=== PATIENT | male | born 1990 | race Caucasian/White ===

== ENCOUNTER 2025-05-25 01:15 | Emergency (ER) | payer OTHER, SELFPAY ==
[2025-05-25 01:15] VITALS: BP 141/96; PULSE 89; RESP 20; TEMP 35.9; O2SAT 98
--- NOTE | 2025-05-25 01:15 | RT.EKG_ITS ---
APPROVED REPORT Exam: Resting ECG Reason for Exam: psych clearance Patient Location: E HR:89 bpm ECG Measurements Heart Rate 89 AXIS OH 160 P 51 QRSd 94 QRS 28 QT 351 T 45 QTc 428 Conclusion Sinus rhythm...normal P axis, V-rate 60- 99 Normal [place]/Intervals No Acute ST changes
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
[2025-05-25 01:49] LABS: Abs Immature Grans 0.03 10^3/uL (0.0-0.06); HCT 42.0 % (40.0-50.0); HGB 14.2 g/dL (13.5-17.5); MCH 28.9 pg (27.0-33.0); MCHC 33.8 % (32.0-36.0); MCV 86 fL (80-95); MPV 11.3 fL (8.0-11.0); Platelet Count 239 10^3/uL (130-400); RBC 4.91 10^6/uL (4.36-5.78); RDW 12.6 % (11.8-14.1); RDW-SD 38.8 fL; WBC 13.85 10^3/uL (4.4-10.8)
[2025-05-25] MEDS: LORazepam 1 MG TAB 2 MG PO (01:49)
[2025-05-25 02:06] LABS: ALT 28 U/L (16-63); AST 20 U/L (15-37); Albumin 4.1 g/dL (3.4-5.0); Alkaline Phosphatase 70 U/L (46-116); Anion Gap 12.5 mmol/L (3-11); BUN 11 mg/dL (7-18); Bilirubin, Total 0.6 mg/dL (0.2-1.0); CO2 23.5 mmol/L (21.0-32.0); Calcium 9.3 mg/dL (8.5-10.1); Chloride 102 mmol/L (98-107); Estimated GFR 81.38 (mL/min/1.73m2); Glucose 125 mg/dL (74-106); Potassium 3.4 mmol/L (3.5-5.1); Sodium 138 mmol/L (136-145); Total Protein 8.2 g/dL (6.4-8.2)
[2025-05-25] MEDS: Haloperidol 5 MG TAB 10 MG PO (02:11)
[2025-05-25 02:14] LABS: Immature Grans % 0.0 %; RBC Morphology Normal
[2025-05-25 02:17] LABS: Salicylate 4.7 mg/dL (<2.8)
[2025-05-25 02:17] LABS: Cannabinoids THC Positive (Negative); METHADONE URINE SCREEN Negative (Negative)
[2025-05-25 02:18] LABS: Acetaminophen < 2 ug/mL (10-30)
--- NOTE | 2025-05-25 02:30 | NUR.NOTE ---
Pt is restless but cooperative, he allowed blood draw ekg and uds, he is loud and singing non stop, stated he is hearing voices, FPJ
--- NOTE | 2025-05-25 03:16 | NUR.NOTE ---
Patient's belongings down in locker 4 in zone b.Nursing Note:
--- NOTE | 2025-05-25 04:03 | PDOC.MHCN ---
Date of service: 05/25/25 Time of Service: 03:00 Suicide Severity Rate CSSRS Have you wished you were or wished you could go to sleep and not wake up?: No Have you actually had any thoughts of killing yourself?: No CSSRS2 Have you been thinking about how you might do this?: No Have you had these thoughts and had some intention of acting on them?: No Have you started to work out or worked out the details of how to kill yourself? Do you intend to carry out this plan?: No CSSRS3 Have you ever done anything, started to do anything or prepared to do anything to end your life?: No CSSRS4 Was this within the past three months?: No Screening Score Total Score: 0 Screening: Negative Mental Health Emergency Note Release [facility] release signed:: Yes Reason for Visit hearing voices In the last 2 weeks has the pt presented for ES prior to today?: Unknown Client Information Client is: New Well Housed: No,status: Homeless Non Suicidal Self Injury Current: No History: No Safety Risk/Harm to Self or Others Current Ideation to Harm Self or Others: No Risk: Does risk to harm exist?: No Risk: N/A Duty to warn indicated: No Asssessment/Mental Status Appearance: Other (Paper clothing) Attitude: Cooperative Behavior: Unremarkable Speech: Normal Affect: Normal Mood: Anxious Thought process: Racing Hallucinations: yes, Auditory Delusions: yes, Persectory/Paranoid Attention: Wandering Perception: Not impaired Orientation: Fully orientated Memory: Intact Insight: Poor Judgement: Poor Neurovegetative Symptoms Sleep: No change Appetitie: No change Interests: No change Energy: No change Libido: Not applicable Substance Use: Do you use nicotine?: Yes Have you used substances in the last 7 days?: No Additional Issues: Assaultive/Threatening Behavior: No Medical Concerns: No Client engaged in active self harm w/weapon: No Threatening to run away: No Child reported abuse/neglect: No Voluntarily presenting for services: Yes Domestic violence is a concern: No Extreme Psychosis or extreme behavior is present: Yes Plan/Disposition Recommended Disposition: Hospitalization facilities contacted. Plan: Referrals were sent out, client will remain at the ED Person reported agreement to plan: Yes Reports/communication Outcome discussed with: ED/Personnel Final Disposition/Discharge Transportation Checklist completed and faxed: No
--- NOTE | 2025-05-25 07:30 | CMPROGNOTE_ITS ---
Date of service: 05/25/25 Time of Service: 10:37 Care Management Progress Note Progress Note Text Progress Note Text: CM huddled with [facility] Per, ED kiln charger, and communicated with mold making supervisor regarding Fam's plan of care. At the time of discussion, Fam remained in his room. Per [facility], Fam currently denies SI/HI; however, he is exhibiting signs of psychosis. [facility] reports that Fam is not based in reality and has made multiple statements, including references to ?Tello trying to kill him? and ?poisoning? him. Fam states he is hearing voices. [facility] indicated that Fam is scheduled to complete an intake appointment with their facility tomorrow to initiate ongoing services. This intake is expected to proceed following this admission. A safety plan is currently in place. [facility]; Patient refused inpatient treatment. Collateral information provided from previous hospital discharges indicates that these behaviors are the patient's baseline. [facility] reevaluated Fam and he will safety plan home. Status Status: Voluntary Reason for Wait: Assessment/Screening Social Determinants of Health Screening Will the Patient Participate in the Screening?: Unable to obtain
--- NOTE | 2025-05-25 07:30 | PDOC.CMPRO ---
Date of service: 05/25/25 Time of Service: 10:37 Care Management Progress Note Progress Note Text Progress Note Text: CM huddled with [facility] Per, ED fire extinguisher charger, and communicated with classified advertising supervisor regarding Fam's plan of care. At the time of discussion, Fam remained in his room. Per [facility], Fam currently denies SI/HI; however, he is exhibiting signs of psychosis. [facility] reports that Fam is not based in reality and has made multiple statements, including references to ?Tello trying to kill him? and ?poisoning? him. Fam states he is hearing voices. [facility] indicated that Fam is scheduled to complete an intake appointment with their facility tomorrow to initiate ongoing services. This intake is expected to proceed following this admission. A safety plan is currently in place. [facility]; Patient refused inpatient treatment. Collateral information provided from previous hospital discharges indicates that these behaviors are the patient's baseline. [facility] reevaluated Fam and he will safety plan home. Status Status: Voluntary Reason for Wait: Assessment/Screening Social Determinants of Health Screening Will the Patient Participate in the Screening?: Unable to obtain
--- NOTE | 2025-05-25 07:30 | PDOC.CMSAFE ---
Date of service: 05/25/25 Time of Service: 07:33 Care Management Safety Plan Status Status: Voluntary Reason for Wait Reason for Wait: Assessment/Screening Safety Plan Safety Plan: Chief Complaint: Chart review findings, current orders, reports (All Visits), patient care notes Current SI, CPSO, past MH and suicidal ideation history as well as substance abuse hx. CM will respond to ED to assess patient after patient has been medically cleared and assessed by screener. If screener deems patient meets criteria for psychiatric stabilization CM will facilitate interdepartmental huddle with [facility] screener for safety planning considerations and meet with patient to review [facility] policy and safety plan, establish individual wishes for treatment and maintain patient rights. In the interim; please note safety plan below to guide patient care while awaiting further assessment in the ED.? SAFETY PLAN: 1. Will remain on suicide precautions and in paper clothes.? 2. Will remain in room under direct supervision of one-on-one staff at all times provided by REGAN, [employer] senior quantity surveyor. 3. May have paper cups, plates, finger foods as well as a cardboard spoon with which to eat meals. 4. Follow [facility] Management of the Admitted Behavioral Health Patient policy. 5. Personal care: Comfort bath system only at this time. 6. Bathroom privileges: with escort in ED. Available in room without limitation on Med/Surg. 6. No personal belongings at this time; per RN discretion. 7. No visitors at this time. 8. Phone contact limited to legal contact at this time. 9. Activities: Music tablet per RN discretion. Med/Surg: Television and remote available at RN discretion. 10. Due to VOLUNTARY status, if patient wishes to leave [facility], staff will contact [facility] Crisis Screener ([phone]) and On-Call Baked And Graphite Inspector ([phone]) as soon as possible. In the event of elopement, notify [employer] Police ([phone]). ? If deemed appropriate for inpatient psychiatric care, safety plan will be established with patient, and care team, to adhere to patient goals, identify restrictions based on behavioral status, address nutrition, and determine allowed personal belongings, tools for hygiene and personal care. As well plan will determine level of activity including ambulation, level of supervision, visitors, and determine privileges based on level of acuity, behaviors and level of engagement by patient.
--- NOTE | 2025-05-25 07:53 | W.EDPROG ---
Date of service: 05/25/25 Time of Service: 07:53 Medical Decision Making I received signout on this 35-year-old male in the emergency department voluntarily. He has a history of schizophrenia but no HI or SI. He is pending assessment with [facility] human services. He is voluntarily taken medications this morning. No active behavioral issues. Discharge Plan Discharge Details Chief Complaint: PsychEval ED Provider: Cash Chatman O'Neals Meds and New Rx's Prescriptions: No Action divalproex 500 mg tablet,delayed release (DR/EC) 500 mg PO BID olanzapine [Zyprexa] 15 mg tablet 15 mg PO QPM haloperidol decanoate [Haldol Decanoate] 100 mg/mL solution 200 mg IM Q4W
--- NOTE | 2025-05-25 07:54 | ED.PROG1_ITS ---
Date of service: 05/25/25 Time of Service: 07:54 Psychiatric Border Handoff Update Brief Story: I received signout on this 35-year-old male in the emergency department voluntarily. He has a history of schizophrenia but no HI or SI. He is pending assessment with [facility]. He is voluntarily taken medications this morning. No active behavioral issues. 11:11AM Per from [facility] had evaluated patient and recommended placement. I spoke with Shameka Mckenna from the [facility] who graciously agreed to accept patient for hospitalization. 12 PM I met with the patient and advised him of transfer to [facility]. He became agitated. He reported that a microchip had been implanted in his head sending him messages. He reports he has been adherent with his medications. He remains voluntary. He is acutely agitated and shouting. Will attempt to engage psychiatry. He is acutely agitated at all shouting things. Patient valproic acid level subtherapeutic at 29 mg/L. Therapeutic ranges 50- 100. In the past he has declined up titration. Patient denies suicidal and homicidal ideation. There is no concern for his ability to care for himself. Per chart review at [facility] patient has chronic psychotic symptoms. There is no acute safety concerns at the moment. Given lack of safety concerns my suspicion is low for patient to meet EE criteria. 12:[address] [facility] reassessed patient. Given chronic nature of hallucinations patient was given a safety plan with outpatient follow- up. Status: voluntary Able to leave: would need physician/VIKI and crisis evaluation prior to leaving Mediation Reconciliation performed: Yes Code Status ordered: Yes Diet ordered: Yes Discharge Plan Disposition Patient Disposition: Home Discharge Details Clinical Impression: Auditory hallucination Primary Care Provider: Vandana,Local ED Provider: Cash Chatman Home Meds and New Rx's Prescriptions: Continued divalproex 500 mg tablet,delayed release (DR/EC) 500 mg PO BID olanzapine [Zyprexa] 15 mg tablet 15 mg PO QPM haloperidol decanoate [Haldol Decanoate] 100 mg/mL solution 200 mg IM Q4W Discharge Instructions Additional Instructions: You are seen in the emergency department for your auditory hallucinations. No medications were changed. If you are concerned about your health please return to the emergency department.
[2025-05-25] MEDS: Divalproex Sodium 500 MG TAB.ER.24H PO (10:16)
--- NOTE | 2025-05-25 10:43 | NUR.NOTE ---
Accessed patient belongings with Leslye GODINEZ to obtain his drivers license and insurance card to be able to register patient. Replaced back in patient wallet. Nursing Note:
[2025-05-25] MEDS: Nicotine 4 MG GUM CH (12:12)
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
--- NOTE | 2025-05-30 09:21 | CMSP_ITS ---
Date of service: 05/30/25 Time of Service: 09:21 Care Management Safety Plan Status Status: Involuntary Reason for Wait Reason for Wait: Inpatient Admission Safety Plan Safety Plan: INVOLUNTARY FOR INPATIENT PSYCHIATRIC STABILIZATION.? Patient is appropriate in all interactions since arriving at [facility]; Pt has demonstrated appropriate coping and communication skills, has articulated his or her needs and concerns and is fully engaged during staff interactions. Safety plan has been established with patient, and care team, to adhere to patient goals, identify restrictions based on behavioral status, address nutrition, and determine allowed personal belongings, tools for hygiene and personal care. Determine level of activity including ambulation, level of supervision, visitors, and determine privileges based on behaviors and level of engagement by pt. SAFETY PLAN: 1. Will remain on suicide precautions, in paper clothes 2. Will remain in Zone B under direct supervision of one-on-one staff at all times provided by [employer]; REGAN, HAND DRAWER IN cold roll inspector. 3. May have paper cups, plates, finger foods as well as a cardboard spoon with which to eat meals. 4. Follow [facility] Management of the Admitted Behavioral Health Patient policy. 5. Shower available in Zone B without restriction. 6. Personal belongings-soft items permitted at RN discretion. 7. Visitors-none at this time. 8. Activities: soft cart items approved per RN discretion. 9.? Bathroom available in Zone B without restriction. 10. Phone: limited to [facility] cordless phone at RN discretion. Due to INVOLUNTARY status, patient is being held at [facility] by the Department of Mental Health ([facility]) until 2nd certification by [facility] Psychiatrist can be performed (within 24 hours). Staff will provide de-escalation support (CPI) as needed. If patient wishes to leave [facility], staff will contact [facility] Crisis Screener ([phone]) and Command Post Craftsman ([phone]) as soon as possible. In the event of elopement, notify [place] [employer] Police ([phone]). Patient is currently involuntarily at [facility]. [facility] Frontline Diesel Engine Ii Pipe Fitter will continue seeking placement. Please contact the Command Post Craftsman for any needed changes to Safety Plan. Safety plan has been provided to interdepartmental care team. Patient will be transported by [employer] at time of discharge.
--- NOTE | 2025-05-30 09:21 | PDOC.CMSAFE ---
Date of service: 05/30/25 Time of Service: 09:21 Care Management Safety Plan Status Status: Involuntary Reason for Wait Reason for Wait: Inpatient Admission Safety Plan Safety Plan: INVOLUNTARY FOR INPATIENT PSYCHIATRIC STABILIZATION.? Patient is appropriate in all interactions since arriving at [facility]; Pt has demonstrated appropriate coping and communication skills, has articulated his or her needs and concerns and is fully engaged during staff interactions. Safety plan has been established with patient, and care team, to adhere to patient goals, identify restrictions based on behavioral status, address nutrition, and determine allowed personal belongings, tools for hygiene and personal care. Determine level of activity including ambulation, level of supervision, visitors, and determine privileges based on behaviors and level of engagement by pt. SAFETY PLAN: 1. Will remain on suicide precautions, in paper clothes 2. Will remain in Zone B under direct supervision of one-on-one staff at all times provided by [employer]; REGAN, SPREADER dumpster operator. 3. May have paper cups, plates, finger foods as well as a cardboard spoon with which to eat meals. 4. Follow [facility] Management of the Admitted Behavioral Health Patient policy. 5. Shower available in Zone B without restriction. 6. Personal belongings-soft items permitted at RN discretion. 7. Visitors-none at this time. 8. Activities: soft cart items approved per RN discretion. 9.? Bathroom available in Zone B without restriction. 10. Phone: limited to [facility] cordless phone at RN discretion. Due to INVOLUNTARY status, patient is being held at [facility] by the Department of Mental Health ([facility]) until 2nd certification by [facility] Psychiatrist can be performed (within 24 hours). Staff will provide de-escalation support (CPI) as needed. If patient wishes to leave [facility], staff will contact [facility] Crisis Screener ([phone]) and Filling Separator ([phone]) as soon as possible. In the event of elopement, notify [place] [employer] Police ([phone]). Patient is currently involuntarily at [facility]. [facility] Frontline Composition Board Press Operator will continue seeking placement. Please contact the Filling Separator for any needed changes to Safety Plan. Safety plan has been provided to interdepartmental care team. Patient will be transported by [employer] at time of discharge.
== END 2025-05-25 12:59 | disposition home or self-care (01) ==
PROVIDERS: Emergency Medicine; Emergency Provider Emergency Medicine
DX: R44.0 Auditory hallucinations (principal)
CPT/HCPCS: 99284 ×2; 36415; 00123; 80053; 80307; 93005; G0378; 80164; 80320; 80329; 85025; 93010; J3490

== ENCOUNTER 2025-05-26 21:12 | Emergency (ER) | payer OTHER, SELFPAY ==
[2025-05-26 21:29] VITALS: BP 186/92; PULSE 86; RESP 18; TEMP 36.3; O2SAT 97
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
[2025-05-26] MEDS: OLANZapine 10 MG, OLANZapine 5 MG 15 MG PO (21:38)
[2025-05-26] MEDS: LORazepam 1 MG TAB PO ×2 (21:38→22:40)
[2025-05-26] MEDS: diphenhydrAMINE 25 MG CAP PO ×2 (21:38→22:40)
--- NOTE | 2025-05-26 22:15 | NUR.NOTE ---
Belongings put in Zone B in locker 4-Nursing Note:
[2025-05-26 22:31] LABS: Glucose Negative (Negative)
[2025-05-26 22:37] LABS: C & S Indicated? No; RBC 0-2 HPF (0-2); WBC 0-2 HPF (0-5)
[2025-05-26 22:47] LABS: Cannabinoids THC Positive (Negative); METHADONE URINE SCREEN Negative (Negative)
--- NOTE | 2025-05-26 23:33 | ED.PROG_ITS ---
Date of service: 05/26/25 Time of Service: 23:00 Medical Decision Making This patient was signed out to me. Please see previous notes for H&P and initial eval. In brief, 35yo M with hx psychosis presenting with worsening psychosis, voluntary at this time; had been seen in this ED recently and safety- planned home. Patient refusing labs. On chart review, he had reassuring labs here ~24 hours ago (CBC, CMP, depakote level, serum tox) and I do not feel we need to repeat these for medical clearance. Placed in ED observation status, [facility] to see patient. [facility] evalauted patient and recommended inpatient treatment; patient refuses. On my assessment he is floridly psychotic, paranoid, tangential. Makes repeated statements about people wanting to kill him or poison him. Per [facility], had made statements about wanting to cut his heart out with a machete to prevent the device in his head from causing missles to kill the entire world. Based on this, meets involuntary treatment critieria. Initial cert filled out and filed; pending 2nd cert. Will be signed out to lauren ferrera; plan as above. Lab Data Lab results reviewed: Yes I reviewed the patient's lab results. Labs: Laboratory Tests Range/Units 05/26/25 22:23 Urine Color (Yellow) Yellow Urine Clarity (Clear) Clear Urine pH (5-8) 6.0 Ur Specific Jay (1.005-1.025) >= 1.030 H Urine Protein (Neg-Trace) mg/dL 30 H Urine Ketones (Negative) mg/dL Trace H Urine Blood (Negative) Negative Urine Nitrite (Negative) Negative Urine Bilirubin (Negative) Small H Urine Urobilinogen (Up to 0.2) mg/dL 1.0 H Ur Leukocyte Esterase (Negative) Negative Urine RBC (0-2) HPF 0-2 Urine WBC (0-5) HPF 0-2 Ur Epithelial Cells (Negative) HPF Rare Urine Crystals (Negative) HPF Negative Urine Bacteria (Negative) HPF Negative Urine Mucus (Negative) Heavy Ur Culture Indicated? No Urine Glucose (Negative) mg/dL Negative Urine Opiates Screen (Negative) Negative Urine Methadone Screen (Negative) Negative Ur Barbiturates Screen (Negative) Negative Ur Tricyclics Screen (Negative) Negative Ur Amphetamines Screen (Negative) Negative U Benzodiazepines Scrn (Negative) Positive A Urine Cocaine Screen (Negative) Negative Ur THC Screen (Negative) Positive A Discharge Plan Discharge Details Chief Complaint: PsychEval Clinical Impression: Psychosis Primary Care Provider: VandanaLocal ED Provider: Sirena Burrell Home Meds and New Rx's Prescriptions: No Action divalproex 500 mg tablet,delayed release (DR/EC) 500 mg PO BID olanzapine [Zyprexa] 15 mg tablet 15 mg PO QPM haloperidol decanoate [Haldol Decanoate] 100 mg/mL solution 200 mg IM Q4W
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
--- NOTE | 2025-05-27 07:17 | ED.PSYCHBOAR ---
Date of service: 05/27/25 Time of Service: 07:17 Psychiatric Border Handoff Update Brief Story: 35M, hx schizophrenia, EE, pending 2nd cert. Floridly psychotic, thoughts of cutting his heart out with a machete to prevent missles from killing everyone. 4:15 PM Second certification held. Patient currently on EE. Patient signed out to Dr. Huntley. Status: EE Able to leave: no, this patient is an EE Mediation Reconciliation performed: Yes Code Status ordered: Yes Diet ordered: Yes Discharge Plan Discharge Details Chief Complaint: PsychEval Clinical Impression: Psychosis Primary Care Provider: Vandana,Local ED Provider: Cash Chatman Champion Meds and New Rx's Prescriptions: No Action divalproex 500 mg tablet,delayed release (DR/EC) 500 mg PO BID olanzapine [Zyprexa] 15 mg tablet 15 mg PO QPM haloperidol decanoate [Haldol Decanoate] 100 mg/mL solution 200 mg IM Q4W
[2025-05-27] MEDS: Nicotine 4 MG GUM CH (12:20)
[2025-05-27] MEDS: OLANZapine 10 MG TAB PO (12:21)
[2025-05-27] MEDS: Divalproex 500 MG TABEC PO (12:21)
[2025-05-27] MEDS: LORazepam 1 MG TAB PO (14:04)
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
--- NOTE | 2025-05-27 19:27 | CMSP_ITS ---
Date of service: 05/27/25 Time of Service: 19:27 Care Management Safety Plan Status Status: Involuntary Reason for Wait Reason for Wait: Inpatient Admission Safety Plan Safety Plan: INVOLUNTARY FOR INPATIENT PSYCHIATRIC STABILIZATION.? Patient is appropriate in all interactions since arriving at [facility]; Pt has demonstrated appropriate coping and communication skills, has articulated his or her needs and concerns and is fully engaged during staff interactions. Safety plan has been established with patient, and care team, to adhere to patient goals, identify restrictions based on behavioral status, address nutrition, and determine allowed personal belongings, tools for hygiene and personal care. Determine level of activity including ambulation, level of supervision, visitors, and determine privileges based on behaviors and level of engagement by pt. SAFETY PLAN: 1. Will remain on suicide precautions, in paper clothes 2. Will remain in Zone B under direct supervision of one-on-one staff at all times provided by [employer]; REGAN, PRETZEL TWISTER river transportation worker. 3. May have paper cups, plates, finger foods as well as a cardboard spoon with which to eat meals. 4. Follow [facility] Management of the Admitted Behavioral Health Patient policy. 5. Shower available in Zone B without restriction. 6. Personal belongings-soft items permitted at RN discretion. 7. Visitors-none at this time. 8. Activities: soft cart items approved per RN discretion. 9.? Bathroom available in Zone B without restriction. 10. Phone: limited to [facility] cordless phone at RN discretion. Due to INVOLUNTARY status, patient is being held at [facility] by the Department of Mental Health ([facility]) until 2nd certification by [facility] Psychiatrist can be performed (within 24 hours). Staff will provide de-escalation support (CPI) as needed. If patient wishes to leave [facility], staff will contact [facility] Crisis Screener ([phone]) and Patent Prosecution Paralegal ([phone]) as soon as possible. In the event of elopement, notify [place] [employer] ([phone]). Patient is currently involuntarily at [facility]. [facility] Frontline Anodiser will continue seeking placement. Please contact the Patent Prosecution Paralegal for any needed changes to Safety Plan. Safety plan has been provided to interdepartmental care team. Patient will be transported by [employer] at time of discharge.
--- NOTE | 2025-05-27 19:27 | PDOC.CMSAFE ---
Date of service: 05/27/25 Time of Service: 19:27 Care Management Safety Plan Status Status: Involuntary Reason for Wait Reason for Wait: Inpatient Admission Safety Plan Safety Plan: INVOLUNTARY FOR INPATIENT PSYCHIATRIC STABILIZATION.? Patient is appropriate in all interactions since arriving at [facility]; Pt has demonstrated appropriate coping and communication skills, has articulated his or her needs and concerns and is fully engaged during staff interactions. Safety plan has been established with patient, and care team, to adhere to patient goals, identify restrictions based on behavioral status, address nutrition, and determine allowed personal belongings, tools for hygiene and personal care. Determine level of activity including ambulation, level of supervision, visitors, and determine privileges based on behaviors and level of engagement by pt. SAFETY PLAN: 1. Will remain on suicide precautions, in paper clothes 2. Will remain in Zone B under direct supervision of one-on-one staff at all times provided by [employer]; REGAN, RHEUMATOLOGY NURSE lockstitch machine operator. 3. May have paper cups, plates, finger foods as well as a cardboard spoon with which to eat meals. 4. Follow [facility] Management of the Admitted Behavioral Health Patient policy. 5. Shower available in Zone B without restriction. 6. Personal belongings-soft items permitted at RN discretion. 7. Visitors-none at this time. 8. Activities: soft cart items approved per RN discretion. 9.? Bathroom available in Zone B without restriction. 10. Phone: limited to [facility] cordless phone at RN discretion. Due to INVOLUNTARY status, patient is being held at [facility] by the Department of Mental Health ([facility]) until 2nd certification by [facility] Psychiatrist can be performed (within 24 hours). Staff will provide de-escalation support (CPI) as needed. If patient wishes to leave [facility], staff will contact [facility] Crisis Screener ([phone]) and Results Technician ([phone]) as soon as possible. In the event of elopement, notify [place] [employer] Police ([phone]). Patient is currently involuntarily at [facility]. [facility] Frontline Help Desk Intern will continue seeking placement. Please contact the Results Technician for any needed changes to Safety Plan. Safety plan has been provided to interdepartmental care team. Patient will be transported by [employer] at time of discharge.
--- NOTE | 2025-05-27 19:30 | PDOC.CMPRO ---
Date of service: 05/27/25 Time of Service: 19:30 Care Management Progress Note Progress Note Text Progress Note Text: CM huddled with [facility] clinician's Dipak, [facility] ED RN Med, and RN supervisor concrete stone finishing Fanta. Fam is new to this area, therefore there is limited information in his EMR. He presented to the ED two days ago, asking for help, but was discharged home with a safety plan which he created with [facility]. At that time, he appeared to show insight to his mental illness, stating that if he goes to inpatient psychiatric treatment, he will still hear voices in his head, unless the transmitter is removed. Fam has reportedly been to several hospitals for psychiatric support, including [facility] and [facility] ([place]); he has a history of schizophrenia, as documented by outside facilities. 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 Fam was moved from the ED to zone b this afternoon, once the milieu was appropriate. He had been reportedly going into other rooms in the ED, and has been disruptive to other patients. While in the huddle, Fam is observed having grandiose delusions and flight of ideas/tangential speech. He appears to escalate while raising his voice and making demands (he demanded that we call [employer] and have him deported to [place], along with his children), but is easily redirectable. He appears to enjoy music, and often breaks out into song during interactions. Fam is being held involuntarily, due to his erratic behavior and psychosis. He engaged with his second certification this afternoon, which was upheld. Referrals were sent to facilities by [facility]. Safety plan in place. He will remain at [facility] until inpatient psychiatric treatment is secured and he is able to transfer for further care. CM will continue to follow. Social Determinants of Health Screening Will the Patient Participate in the Screening?: Unable to obtain
[2025-05-27] MEDS: LORazepam 1 MG TAB 2 MG PO (21:00)
[2025-05-28] MEDS: Ketamine 500 MG/5 ML VIAL 600 MG IM (09:38)
[2025-05-28] MEDS: Nicotine 2 MG GUM ×2 (09:40→13:45)
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
[2025-05-28 10:35] VITALS: RESP 12
[2025-05-28 11:05] VITALS: RESP 14
[2025-05-28] MEDS: Ondansetron O.D.T. 4 MG TABEF (14:30)
[2025-05-28 14:57] VITALS: BP 116/74; PULSE 120; O2SAT 98
[2025-05-28] MEDS: Divalproex 500 MG TABEC PO ×2 (16:09→18:55)
[2025-05-28] MEDS: LORazepam 1 MG TAB 2 MG PO (16:16)
[2025-05-28] MEDS: QUEtiapine 25 MG TAB PO (16:16)
[2025-05-28] MEDS: Nicotine 2 MG GUM CH ×3 (17:58→23:08)
--- NOTE | 2025-05-28 18:03 | CMSP_ITS ---
Date of service: 05/28/25 Time of Service: 18:03 Care Management Safety Plan Status Status: Involuntary Reason for Wait Reason for Wait: Inpatient Admission Safety Plan Safety Plan: INVOLUNTARY FOR INPATIENT PSYCHIATRIC STABILIZATION.? Patient is appropriate in all interactions since arriving at [facility]; Pt has demonstrated appropriate coping and communication skills, has articulated his or her needs and concerns and is fully engaged during staff interactions. Safety plan has been established with patient, and care team, to adhere to patient goals, identify restrictions based on behavioral status, address nutrition, and determine allowed personal belongings, tools for hygiene and personal care. Determine level of activity including ambulation, level of supervision, visitors, and determine privileges based on behaviors and level of engagement by pt. SAFETY PLAN: 1. Will remain on suicide precautions, in paper clothes 2. Will remain in Zone B under direct supervision of one-on-one staff at all times provided by [employer]; REGAN, WIND TURBINE PERFORMANCE ENGINEER coding auditor. 3. May have paper cups, plates, finger foods as well as a cardboard spoon with which to eat meals. 4. Follow [facility] Management of the Admitted Behavioral Health Patient policy. 5. Shower available in Zone B without restriction. 6. Personal belongings-soft items permitted at RN discretion. 7. Visitors-none at this time. 8. Activities: soft cart items approved per RN discretion. 9.? Bathroom available in Zone B without restriction. 10. Phone: limited to [facility] cordless phone at RN discretion. Due to INVOLUNTARY status, patient is being held at [facility] by the Department of Mental Health ([facility]) until 2nd certification by [facility] Psychiatrist can be performed (within 24 hours). Staff will provide de-escalation support (CPI) as needed. If patient wishes to leave [facility], staff will contact [facility] Crisis Screener ([phone]) and Interior Design Program Chair ([phone]) as soon as possible. In the event of elopement, notify [place] [employer] Police ([phone]). Patient is currently involuntarily at [facility]. [facility] Frontline Edging Machine Feeder will continue seeking placement. Please contact the Interior Design Program Chair for any needed changes to Safety Plan. Safety plan has been provided to interdepartmental care team. Patient will be transported by [employer] at time of discharge.
--- NOTE | 2025-05-28 18:03 | PDOC.CMSAFE ---
Date of service: 05/28/25 Time of Service: 18:03 Care Management Safety Plan Status Status: Involuntary Reason for Wait Reason for Wait: Inpatient Admission Safety Plan Safety Plan: INVOLUNTARY FOR INPATIENT PSYCHIATRIC STABILIZATION.? Patient is appropriate in all interactions since arriving at [facility]; Pt has demonstrated appropriate coping and communication skills, has articulated his or her needs and concerns and is fully engaged during staff interactions. Safety plan has been established with patient, and care team, to adhere to patient goals, identify restrictions based on behavioral status, address nutrition, and determine allowed personal belongings, tools for hygiene and personal care. Determine level of activity including ambulation, level of supervision, visitors, and determine privileges based on behaviors and level of engagement by pt. SAFETY PLAN: 1. Will remain on suicide precautions, in paper clothes 2. Will remain in Zone B under direct supervision of one-on-one staff at all times provided by [employer]; REGAN, WAREHOUSE TECHNICIAN senior power plant operator. 3. May have paper cups, plates, finger foods as well as a cardboard spoon with which to eat meals. 4. Follow [facility] Management of the Admitted Behavioral Health Patient policy. 5. Shower available in Zone B without restriction. 6. Personal belongings-soft items permitted at RN discretion. 7. Visitors-none at this time. 8. Activities: soft cart items approved per RN discretion. 9.? Bathroom available in Zone B without restriction. 10. Phone: limited to [facility] cordless phone at RN discretion. Due to INVOLUNTARY status, patient is being held at [facility] by the Department of Mental Health ([facility]) until 2[address] certification by [facility] Psychiatrist can be performed (within 24 hours). Staff will provide de-escalation support (CPI) as needed. If patient wishes to leave [facility], staff will contact [facility] Crisis Screener ([phone]) and Securities Settlement Processor ([phone]) as soon as possible. In the event of elopement, notify [place] [employer] Police ([phone]). Patient is currently involuntarily at [facility]. [facility] Frontline Enrollment Eligibility Representative will continue seeking placement. Please contact the Securities Settlement Processor for any needed changes to Safety Plan. Safety plan has been provided to interdepartmental care team. Patient will be transported by [employer] at time of discharge.
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
[2025-05-28 19:10] VITALS: BP 123/73; PULSE 124; TEMP 36.7; O2SAT 98
[2025-05-28] MEDS: OLANZapine 10 MG TAB PO (19:26)
[2025-05-28] MEDS: LORazepam 1 MG TAB PO (19:47)
[2025-05-28] MEDS: diphenhydrAMINE 50 MG/ML VIAL IM (21:34)
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
--- NOTE | 2025-05-28 22:48 | PDOC.MHPN2 ---
Date of service: 05/28/25 Time of Service: 19:10 Mental Health Emergency Note Release [facility] release signed:: Yes Reason for Visit The client is currently on EE status at [facility]. The client is new to [facility] and to this group underwriter. It is unknown to this clinician if the client has ever been hospitalized for his mental health in the past. This is the client's second daily assessment done face to face. In the last 2 weeks has the pt presented for ES prior to today?: No Impression The client is a 35-year-old biological male who self-reports to be living independently in [place] but is in [place] visiting his daughter. The client is seen wearing blue paper scrubs laying in his hospital bed eating sour patch kids. Affect appears to be expansive. Speech is in normal range. Client is cooperative and friendly with this clinician. Thought process appears to be racing, loose associations and a poverty of content. The client reports auditory hallucinations by hearing voices in his head. There are persecutory/paranoid, grandiose and bizarre delusions observed by this clinician. Cognitive assessment reveals orientation to person, place and time. The client states he is listening to the voices in his head and they have not stopped. The client reports hearing these voces in his head over the last 8 years. The client stated the voices told him to break shit earlier and so he did.The client states he has been eating and sleeping well while in the [facility]. The client denies SI and NSSI. The client reports wanting to stab himself in the heart so that the missiles will be deployed to blow up the whole world. The client states he plans to carry out this plan once released or maybe even at treatment if he can get a knife. The client shared that his ex-girlfriends lives around here and that it is the mother to his [id number] daughter who lives in [place], [place]. The client asked this group underwriter if he was going to at [facility] because he thought he was going to OD on the ketamine shot he got earlier. Diagnosis(es): Plan/Disposition Recommended Disposition: Hospitalization No. Plan: The client will remain in the [facility] until placement can be secured. The client will receive twice a day daily assessment by emergency services until placed. Person reported agreement to plan: No Reports/communication Outcome discussed with: ED/Personnel (Verbal given to [facility] zone b staff)
[2025-05-28] MEDS: QUEtiapine 50 MG TAB PO (23:05)
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
--- NOTE | 2025-05-29 08:55 | PDOC.CMSAFE ---
Date of service: 05/29/25 Time of Service: 08:55 Care Management Safety Plan Status Status: Involuntary Reason for Wait Reason for Wait: Inpatient Admission Safety Plan Safety Plan: INVOLUNTARY FOR INPATIENT PSYCHIATRIC STABILIZATION.? Patient is appropriate in all interactions since arriving at [facility]; Pt has demonstrated appropriate coping and communication skills, has articulated his or her needs and concerns and is fully engaged during staff interactions. Safety plan has been established with patient, and care team, to adhere to patient goals, identify restrictions based on behavioral status, address nutrition, and determine allowed personal belongings, tools for hygiene and personal care. Determine level of activity including ambulation, level of supervision, visitors, and determine privileges based on behaviors and level of engagement by pt. SAFETY PLAN: 1. Will remain on suicide precautions, in paper clothes 2. Will remain in Zone B under direct supervision of one-on-one staff at all times provided by [employer]; REGAN, MECHANICAL MANUFACTURING TECHNICIAN network security consultant. 3. May have paper cups, plates, finger foods as well as a cardboard spoon with which to eat meals. 4. Follow [facility] Management of the Admitted Behavioral Health Patient policy. 5. Shower available in Zone B without restriction. 6. Personal belongings-soft items permitted at RN discretion. 7. Visitors-none at this time. 8. Activities: soft cart items approved per RN discretion. 9.? Bathroom available in Zone B without restriction. 10. Phone: limited to [facility] cordless phone at RN discretion. Due to INVOLUNTARY status, patient is being held at [facility] by the Department of Mental Health ([facility]) until 2nd certification by [facility] Psychiatrist can be performed (within 24 hours). Staff will provide de-escalation support (CPI) as needed. If patient wishes to leave [facility], staff will contact [facility] Crisis Screener ([phone]) and Buckle Sorter ([phone]) as soon as possible. In the event of elopement, notify [place] Police ([phone]). Patient is currently involuntarily at [facility]. [facility] Frontline Audio/Visual Operator will continue seeking placement. Please contact the Buckle Sorter for any needed changes to Safety Plan. Safety plan has been provided to interdepartmental care team. Patient will be transported by [employer] at time of discharge.
[2025-05-29] MEDS: Divalproex 500 MG TABEC PO ×2 (10:17→19:23)
[2025-05-29] MEDS: Nicotine 2 MG GUM CH ×2 (10:53→18:32)
[2025-05-29] MEDS: LORazepam 1 MG TAB 2 MG PO ×2 (11:19→19:05)
[2025-05-29 11:30] VITALS: BP 128/66; PULSE 111; RESP 18; TEMP 36.5; O2SAT 98
[2025-05-29] MEDS: Midazolam 2 MG/2 ML VIAL 4 MG IM (12:58)
[2025-05-29] MEDS: Water,Injection,Sterile 10 ML VIAL (12:58)
[2025-05-29] MEDS: OLANZapine 10 MG VIAL IM (12:58)
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
[2025-05-29] MEDS: diazePAM 5 MG TAB 10 MG PO (19:27)
[2025-05-29] MEDS: QUEtiapine 50 MG TAB PO (20:00)
[2025-05-29] MEDS: diphenhydrAMINE 50 MG/ML VIAL IM (20:17)
[2025-05-29] MEDS: Melatonin 3 MG TAB 12 MG PO (22:12)
[2025-05-30 00:04] VITALS: RESP 16
[2025-05-30] MEDS: Divalproex 500 MG TABEC PO ×2 (11:11→19:00)
[2025-05-30] MEDS: OLANZapine 10 MG, OLANZapine 5 MG 15 MG PO (11:11)
--- NOTE | 2025-05-30 11:27 | NUR.NOTE ---
pt awake, got up to go th the bathroom, then layed down again on his matress. was up shortly after to ask for clippers, razor and comb to trim his hunter.told him it would take me a few minutes to find the things he wanted. took his meds. filled out a lunch menu order and then was demanding clipper and razor for shaving. I told him that I could not give him what he wanted at this time. Pt got very angry. asked when would he be getting out of here, told me we were holding him illegally. tne walked out the vestibule door. security and ER notified.Nursing Note:
--- NOTE | 2025-05-30 11:38 | CMPROGNOTE_ITS ---
Date of service: 05/30/25 Time of Service: 11:38 Care Management Progress Note Progress Note Text Progress Note Text: Disruptive person alert in the ED called for Chevy at 11:20 today. Chevy was able to find a way out of zone B, and was out of the ER. He was threatening violence against staff. He was heard saying that he is going to [facility] because we never did a brain scan and he has been here for 5 days complaining about voices in his head. Chvey made it outside the ER, he was waiting for his belongings to be delivered to him, when VSP arrived. VSP had been immediately notified per protocol. Current plan is that Chevy will be both physically and chemically restrained with the help of VSP and security. CM will continue to follow. Chevy is back in Zone B. He is no longer physically restrained and has been sleeping since he was medicated. CM spoke with [facility]. There are currently no level 1 beds in the state, but reportedly [place] is #1 on the wait list. Status Status: Involuntary Reason for Wait: Inpatient Admission (needs a level 1 bed) Social Determinants of Health Screening Will the Patient Participate in the Screening?: Unable to obtain
[2025-05-30] MEDS: Midazolam 2 MG/2 ML VIAL 4 MG IM (11:46)
[2025-05-30] MEDS: diphenhydrAMINE 50 MG/ML VIAL 25 MG IM (11:47)
[2025-05-30] MEDS: Droperidol 5 MG/2 ML VIAL IM (11:47)
--- NOTE | 2025-05-30 12:09 | ED.PROG1_ITS ---
Date of service: 05/30/25 Time of Service: 12:09 Psychiatric Border Handoff Update Status: EE Able to leave: no, this patient is an EE Behavioral Concerns: No concerns overnight. 12:00 --patient walked out of Zone B section in the emergency department and entered the main ED, he was yelling in the hallway and demanding to leave. De- escalation attempts were made and unsuccessful. Patient refused to return to room and was threatening to assault staff. Due to lability of condition and concern for staff safety patient was shown to the exit and law enforcement was immediately contacted. Law enforcement engaged with the patient outside for some time and escorted him back into the ED. Patient was treated with a trauma informed approach and with respect. He was placed in 4 point restraints and chemical sedation was administered without complication. 1305 -- Patient reassessed: Patient is cooperating with staff and exhibiting no aggressive or threatening behavior. Patient agreeable to remaining safe. Restraints discontinued. 1600 -- Patient has been doing well, resting comfortably and sleeping. Barriers to Disposition: No available psychiatric treatment facility beds at this time Medical Concerns: None Mediation Reconciliation performed: Yes Code Status ordered: Yes Diet ordered: Yes Discharge Plan Discharge Details Chief Complaint: PsychEval Clinical Impression: Psychosis Primary Care Provider: No,Local ED Provider: Delroy Jeff [place] Meds and New Rx's Prescriptions: No Action divalproex 500 mg tablet,delayed release (DR/EC) 500 mg PO BID olanzapine [Zyprexa] 15 mg tablet 15 mg PO QPM haloperidol decanoate [Haldol Decanoate] 100 mg/mL solution 200 mg IM Q4W Restraint Face to Face Time of Face to Face Face to Face: Time of Face to Face: 12:09 Patient's Immediate Situation Requiring Restraints/Seclusion: Harm to Staff & Others Patient Response to Restraints: Tolerating without Problems Patient's Medical & Behavioral Condition: Patient demonstrated aggressive behavior threatening staff with violence. De- escalation attempts were made with a trauma informed approach to care. Unfortunately these were unsuccessful and patient eloped from the emergency department. He was returned with law enforcement. Patient placed in 4-point restraint and chemical restraint initiated to ensure patient and staff safety. Patient administered Versed 4 mg, droperidol 5 mg, and Benadryl 25 mg IM. Need for Continuation of Restraints Has Been Assessed: Restraints Contin ued
[2025-05-30] MEDS: Nicotine 14 MG/24 HR PATCH TD (12:30)
[2025-05-30 12:46] VITALS: RESP 16
[2025-05-30] MEDS: Nicotine 2 MG GUM CH (18:12)
[2025-05-30] MEDS: LORazepam 1 MG TAB 2 MG PO ×3 (18:46→22:53)
[2025-05-30] MEDS: QUEtiapine 50 MG TAB PO (19:00)
[2025-05-30] MEDS: OLANZapine 10 MG TAB 15 MG PO (19:18)
[2025-05-30] MEDS: diphenhydrAMINE 25 MG CAP 50 MG PO (20:07)
[2025-05-30] MEDS: Ketorolac 30 MG/ML VIAL IM (21:20)
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
--- NOTE | 2025-05-30 22:30 | MHPN_ITS ---
Date of service: 05/29/25 Time of Service: 20:40 Mental Health Emergency Note Release [facility] release signed:: Yes Reason for Visit Importing for ESC Venessa: Fam is not well known to [facility] but is known to this adjusto writer operator as of 05/26. Fma is currently on an involuntary hold and will remain at [facility] until treatment is secured. In the last 2 weeks has the pt presented for ES prior to today?: No Impression Fam is a [age] year old single male who is residing at the [facility]. Fam is not originally from the area so a lot of his information is unknown. This adjusto writer operator first encountered with Fam on 05/26 when an EE was completed. Fam presents tot his adjusto writer operator today in blue paper scrubs standing at the nurse's station door of Zone b. Fam was escalated earlier per report of staff but has since calmed down, been given Benadryl and able to be redirected. Fam asked this adjusto writer operator for chips which the nurses were trying to get for him. Fam reported that he has a transmitter in his brain, he is listening to voices and these medications are not working. Fam reports he needs surgeries so the transmitters and SD cards can be removed. Fam asked for a breakfast menu and told this wrier he had no more questions but would like to see this adjusto writer operator tomorrow. This adjusto writer operator checked in with [facility] B RN and Provider prior to leaving. Plan/Disposition Recommended Disposition: Hospitalization facilities contacted. Plan: Fam will remain in the EE until placed. Person reported agreement to plan: No Reports/communication Outcome discussed with: ED/Personnel (Verbal given to [facility] b staff)
--- NOTE | 2025-05-30 22:39 | MHPN_ITS ---
Date of service: 05/30/25 Time of Service: 20:53 Mental Health Emergency Note Release [facility] release signed:: Yes Reason for Visit The client is known to [facility] as an intake was completed on 05/26 for the client to start outpatient services. On 05/27 a mental health EE was completed due to threatening and dangerous behaviors. The client is currently at [facility] on an EE and this ghost writer is completing the second daily assessment. It should be noted that 1st daily assessment was unable to be completed due to the clients escalated behavior and elopement from the ED, which resulted in IM medications and restraints. In the last 2 weeks has the pt presented for ES prior to today?: No Additional Issues: Extreme Psychosis or extreme behavior is present: Yes Impression The client is a [age] year old single male who is residing at the [facility]. The client is originally from the area so a lot of his information is unknown. This ghost writer first encountered with the client on 05/26 when an EE was completed by naomi Robles. This ghost writer meets via zoom with the client in zone b at [facility]. The client is initially laying on mattress in the hallway of the zone b unit however stands up and comes to the half door of the unit when this ghost writer is on zoom in the nurses station. The client appears to be getting very escalated and is heard saying that he wants medications for the pressure in his head. The client reports that he is continuing to hear voices and has been talking to his precast concrete products installer. The client initially denies HI, however throughout this writers conversation with the client he makes multiple threats to hurt other people. The client continues to meet criteria for an involuntary hold. Plan/Disposition Recommended Disposition: Hospitalization facilities contacted. Plan: The client will remain at [facility] ED on EE status pending placement in an inpatient facility. The client will be re-assessed daily until placed Person reported agreement to plan: No Reports/communication Outcome discussed with: ED/Personnel (Verbal given to [facility] b staff)
[2025-05-30] MEDS: Nicotine 4 MG GUM CH (23:19)
[2025-05-31] MEDS: diazePAM 5 MG TAB 10 MG PO (00:04)
[2025-05-31] MEDS: Divalproex 500 MG TABEC PO (12:06)
[2025-05-31] MEDS: LORazepam 1 MG TAB 2 MG PO (13:28)
[2025-05-31] MEDS: OLANZapine 10 MG, OLANZapine 5 MG 15 MG PO (13:30)
--- NOTE | 2025-05-31 13:37 | NUR.NOTE ---
Nursing Note: Called to Zone B for patient who was escalating and staff worried he would attempt to elope. It was also noted that he refused his scheduled olanzapine this AM as well as PRN Ativan. Patient was standing in the hallway against the glass upon arrival and asked this telegraphic typewriter repairer if he could go outside and have a cigarette. Explained to patient that it is against our policy for him to leave the unit and smoke. Patient reported he had a device in his head. Explained to patient that the racing thoughts and voices are the reason why this medication is prescribed and that part of the process to get discharged is to be medication complaint. Patient agreed to take scheduled olanzapine and PRN lorazepam for his agitation.
[2025-05-31] MEDS: Nicotine 4 MG GUM CH (13:39)
--- NOTE | 2025-05-31 13:42 | ED.PROG1_ITS ---
Date of service: 05/31/25 Time of Service: 13:43 Psychiatric Border Handoff Update Brief Story: EE with intermittent behavioral outbursts. Slept well overnight following medications. 1:43 PM [facility]. 4:30 PM No active behavioral issues at shift. Patient signed out to Dr. Anderson. Status: EE Able to leave: no, this patient is an EE Barriers to Disposition: Intermittently agitated. Mediation Reconciliation performed: Yes Code Status ordered: Yes Diet ordered: Yes Discharge Plan Discharge Details Chief Complaint: PsychEval Clinical Impression: Psychosis Primary Care Provider: No,Local ED Provider: Cash Chatman [facility] and New Rx's Prescriptions: No Action divalproex 500 mg tablet,delayed release (DR/EC) 500 mg PO BID olanzapine [Zyprexa] 15 mg tablet 15 mg PO QPM haloperidol decanoate [Haldol Decanoate] 100 mg/mL solution 200 mg IM Q4W
[2025-05-31] MEDS: diazePAM 5 MG TAB PO (14:56)
[2025-05-31] MEDS: diphenhydrAMINE 25 MG CAP 50 MG PO (14:59)
--- NOTE | 2025-05-31 15:38 | MHPN_ITS ---
Date of service: 05/31/25 Time of Service: 12:30 Mental Health Emergency Note Release [facility] release signed:: Yes Reason for Visit Mr Trinidad is a 35 year old single male who currently resides at the [facility]. The client presents in psychosis stating that he is going to set off all of the missiles in the world and destroy the world. The client reports that he needs a cigarette and that the patches or lozenges do not work. The [facility] pital reports that he had to be physically and chemically restrained over the weekend. The client reported that he had eaten some food and had slept for about five hours. The client refused to engage further with this clinician when the clinician informed the client he could not provide the client with cigarettes. This is the first reassessment of the client for the day. LOVE is involved at this juncture. In the last 2 weeks has the pt presented for ES prior to today?: Yes, presented at [facility] ED Neurovegetative Symptoms Sleep: Decrease Appetitie: Decrease Interests: No change Energy: No change Libido: Not applicable Additional Issues: Assaultive/Threatening Behavior: No Medical Concerns: No Client engaged in active self harm w/weapon: No Threatening to run away: Yes Child reported abuse/neglect: No Voluntarily presenting for services: No Domestic violence is a concern: No Extreme Psychosis or extreme behavior is present: Yes Impression Mr Trinidad is a 35 year old single male who currently resides at the [facility]. The client presents in psychosis stating that he is going to set off all of the missiles in the world and destroy the world. The client reports that he needs a cigarette and that the patches or lozenges do not work. The hospital reports that he had to be physically and chemically restrained over the weekend. The client reported that he had eaten some food and had slept for about five hours. The client refused to engage further with this clinician when the clinician informed the client he could not provide the client with cigarettes. This is the first reassessment of the client for the day. LOVE is involved at this juncture. Plan/Disposition Recommended Disposition: Hospitalization facilities contacted. Plan: The client is waiting for in patient treatment on a emergency examination. Reports/communication Outcome discussed with: ED/Personnel
--- NOTE | 2025-05-31 18:17 | ED.PSYCHBOAR ---
Date of service: 05/31/25 Time of Service: 17:00 Psychiatric Border Handoff Update Brief Story: In brief, this is a 35-year-old male patient boarding in our emergency department on an EE for psychosis and command auditory hallucinations. Prior to my taking over their care, the patient was medically cleared, and has been resting comfortably. They have met with the social organization professor and we are awaiting final dispo. They have not required any additional medications for restraint or sedation but have required a significant amount of oral medications for his ongoing hallucinations and agitation which she has taken voluntarily. They have been admitted to ED psych observation. He was accepted to [facility], Doc to Doc report given by Dr. Chatman, the patient will be transported by the graduate school dean's department to that facility for ongoing management of his mental health conditions. Remained hemodynamically appropriate while under my care and left our facility without incident. Janice Anderson MD Status: EE Able to leave: no, this patient is an EE Mediation Reconciliation performed: Yes Code Status ordered: Yes Diet ordered: Yes Discharge Plan Disposition Patient Disposition: Psychiatric Hospital/Unit Specific Psychiatric Facility: [facility] Discharge Details Clinical Impression: Psychosis Primary Care Provider: Vandana,Local ED Provider: Janice Anderson Home Meds and New Rx's Prescriptions: Continued divalproex 500 mg tablet,delayed release (DR/EC) 500 mg PO BID olanzapine [Zyprexa] 15 mg tablet 15 mg PO QPM haloperidol decanoate [Haldol Decanoate] 100 mg/mL solution 200 mg IM Q4W Discharge Instructions Additional Instructions: You were seen in the emergency department for psychosis. You are transferred to the [facility]. No medications were changed during her stay in the emergency department.
--- NOTE | 2025-05-31 18:49 | CMPROGNOTE_ITS ---
Date of service: 05/31/25 Time of Service: 18:49 Care Management Progress Note Progress Note Text Progress Note Text: Fam was accepted at [facility] today for inpatient psychiatric treatment. Staff presented concerns about Fam's prolonged stay, as his behavior appears to be escalating, and he has had to be restrained multiple times while waiting for placement. [facility] coordinated transport via [facility], which was scheduled for this evening. He will transfer to [facility] for further care for his acute psychiatric needs. CM will continue to follow. Social Determinants of Health Screening Will the Patient Participate in the Screening?: Unable to obtain
== END 2025-05-31 20:38 ==
PROVIDERS: Physician Assistant; Emergency Provider Emergency Medicine
DX: R44.0 Auditory hallucinations (principal); F20.9 Schizophrenia, unspecified; F28 Other psychotic disorder not due to a substance or known physiological condition
CPT/HCPCS: 99285 ×6; 96372 ×3; 00123; 80053; 80307; G0378; 80164; 80320; 80329; 81003; 81015; 84443; 85025; J1200; J1790; J1885; J2250; J2359